=== PATIENT | female | born 1965 | race Caucasian/White ===

== ENCOUNTER 2018-11-16 04:55 | Day surgery (SDC) | payer OTHER ==
[2018-11-15 11:00] VITALS: BMI 21.2
[2018-11-16] MEDS ORDERED: PROPOFOL 20 ML ONE (12:57)
[2018-11-16] MEDS ORDERED: MIDAZOLAM HCL 2 MG/2 ML SINGLE DOSE VIAL ONE (12:57)
--- NOTE | 2018-11-16 13:47 | HP ---
Admitting History and Physical - Admission Chief Complaint: Pelvic pain / Menorrhagia History of Present Illness: 53 yo Para 1 with h/o Menorrhagia associated with pelvic pain, is pre op for D& C hysteroscopy. History Source: Patient Limitations to Obtaining History: No Limitations - Past Medical History ...LMP: 11/08/18 ...: No ...Para: 1 - Past Surgical History Past Surgical History: Yes: None - Smoking History Smoking history: Never smoked - Alcohol/Substance Use Hx Alcohol Use: No History of Substance Use: reports: None - Social History History of Recent Travel: No Home Medications - Allergies Allergies/Adverse Reactions: Allergies Allergy/AdvReac Type Severity Reaction Status Date / Time No Known Allergies Allergy Verified 11/16/18 12:30 - Home Medications Home Medications: Ambulatory Orders NK [No Known Home Medication] 11/15/18 Family Disease History - Family Disease History Family History: Unremarkable Review of Systems - Review of Systems Constitutional: reports: No Symptoms Eyes: reports: No Symptoms HENT: reports: No Symptoms Neck: reports: No Symptoms Cardiovascular: reports: No Symptoms Respiratory: reports: No Symptoms Gastrointestinal: reports: No Symptoms Genitourinary: reports: Pain, Vaginal Bleeding Breasts: reports: No Symptoms Reported Musculoskeletal: reports: No Symptoms Integumentary: reports: No Symptoms Neurological: reports: No Symptoms Endocrine: reports: No Symptoms Hematology/Lymphatic: reports: No Symptoms Psychiatric: reports: No Symptoms Pain Intensity: 3 Physical Examination Vital Signs: Vital Signs Temperature 98.3 F 11/16/18 12:23 Pulse Rate 76 11/16/18 12:23 Respiratory Rate 18 11/16/18 12:23 Blood Pressure 133/76 11/16/18 12:23 O2 Sat by Pulse Oximetry (%) 100 11/16/18 12:22 Constitutional: Yes: Well Nourished Eyes: Yes: Conjunctiva Clear HENT: Yes: Atraumatic Neck: Yes: Supple Cardiovascular: Yes: Regular Rate and Rhythm Respiratory: Yes: Regular Gastrointestinal: Yes: Normal Bowel Sounds Musculoskeletal: Yes: WNL Extremities: Yes: WNL Neurological: Yes: Alert, Oriented ...Motor Strength: WNL Psychiatric: Yes: Alert, Oriented Problem List - Problems (1) Pelvic pain Code(s): R10.2 - PELVIC AND PERINEAL PAIN (2) Menorrhagia Code(s): N92.0 - EXCESSIVE AND FREQUENT MENSTRUATION WITH REGULAR CYCLE Assessment/Plan Pelvic pain Menorrhagia Pre op for D&C hysteroscopy Consent signed Anesthesia to see patient
[2018-11-16] MEDS ORDERED: DEXAMETHASONE SOD PHOSPHATE 4 MG/1 ML VIAL ONE (14:06)
[2018-11-16] MEDS ORDERED: ONDANSETRON 4 MG/2 ML VIAL IVPUSH PRN (14:44)
[2018-11-16] MEDS ORDERED: oxyCODONE HCL 5 MG TABLET PO PRN (14:44)
[2018-11-16] MEDS ORDERED: LACTATED RINGERS SOLUTION 1,000 ML IV SCH (14:45)
--- NOTE | 2018-11-16 15:18 | OP ---
Operative Note - Note: Operative Date: 11/16/18 Pre-Operative Diagnosis: Pelvic pain / Menorrhagia Operation: D&C Hysteroscopy Findings: Endometrial polyp Post-Operative Diagnosis: Same as Pre-op Surgeon: Milli Valle Anesthesia: General Specimens Removed: Endometrial curettings Estimated Blood Loss (mls): 5 Operative Report Dictated: Yes
[2018-11-16 15:33] VITALS: TEMP 98.2
[2018-11-16] MEDS ORDERED: IBUPROFEN 600 MG TABLET (FP) PO ONE ×2 (15:45→15:52)
[2018-11-16 18:14] VITALS: BP 111/66; PULSE 66
--- NOTE | 2018-11-17 09:31 | OP ---
DATE OF OPERATION: 11/16/2018 PREOPERATIVE DIAGNOSIS: Menorrhagia and pelvic pain. POSTOPERATIVE DIAGNOSIS: Menorrhagia and pelvic pain. PROCEDURE: Dilation and curettage, hysteroscopy. SURGEON: Milli Valle MD ANESTHESIA: General. COMPLICATIONS: None. ESTIMATED BLOOD LOSS: 5 mL. DESCRIPTION OF PROCEDURE: Patient was taken to the operating room where general anesthesia was administered. Patient was then placed in lithotomy position. She was then prepped and draped in proper sterile fashion. A weighted speculum was placed in the vagina. The anterior lip of the cervix was grasped with a single-tooth tenaculum. Then the uterus was sounded to about 7 cm. The cervical os was sequentially dilated with Max dilators, and 5-mm hysteroscope was then gently introduced into the uterine cavity. There were several polyps noted in the cavity. The hysteroscope was removed. A sharp curettage was then performed. When finished, the instruments were removed. The patient was taken out of lithotomy position. She was taken to PACU in stable condition. PATHOLOGY: Endometrial curettings. Fouzia [id number] MTDD
--- NOTE | 2018-11-21 18:23 | PATH ---
Surgical Pathology Report Patient Name: LINDA SUN Med. Rec. #: [id number] /Age/Gender: 1965 (Age: 53) / F Account: [id number] Location: [facility] SURGICAL Taken: 11/16/2018 Received: 11/17/2018 Reported: 11/21/2018 Physicians: Milli Valle M.D. Specimen(s) Received ENDOMETRIAL CURETTINGS Clinical History Menorrhagia and pelvic pain Final Diagnosis ENDOMETRIAL CURETTINGS: ENDOMETRIAL POLYP. PROLIFERATIVE ENDOMETRIUM WITH FOCAL STROMAL BREAKDOWN. SEPARATE ENDOCERVICAL TISSUE AND SQUAMOUS EPITHELIUM WITH NO SIGNIFICANT PATHOLOGIC CHANGE. Electronically Signed Leila May M.D. Gross Description Received in formalin labeled "endometrial curettings" are multiple fragments of pink-galvez, focally hemorrhagic tissue measuring 1.3 x 0.3 cm in aggregate. Entire specimen submitted in one cassette. __ MLSZ/11/18/2018 san[facility]/11/18/2018
== END 2018-11-16 16:40 | disposition home or self-care (01) ==
LOC: JASU-SURG 04:55
PROVIDERS: ATTEND Obstetrics & Gynecology
PROC: 0UDB7ZX Extraction of Endometrium, Via Natural or Artificial Opening, Diagnostic (ICD-10-PCS; principal; 2018-11-16 14:30)
PROC: 0UJD8ZZ Inspection of Uterus and Cervix, Via Natural or Artificial Opening Endoscopic (ICD-10-PCS; 2018-11-16 14:30)
DX: N92.0 Excessive and frequent menstruation with regular cycle (principal); R10.2 Pelvic and perineal pain; N84.0 Polyp of corpus uteri
CPT/HCPCS: 84703; 88305-TC; 94760